=== PATIENT | female | born 1955 | race Caucasian/White ===

== ENCOUNTER 2016-11-13 16:50 | Emergency (ER) | payer OTHER ==
[2016-11-13] MEDS ORDERED: ACETAMINOPHEN 325 MG TAB PO ONE (17:12)
[2016-11-13 17:17] LABS: COLOR YELLOW; LEUKOCYTE ESTERASE,URINE 1+ (NEGATIVE); NITRITE,URINE NEGATIVE (NEGATIVE); PH,URINE 6.5 (5.0-7.5)
[2016-11-13 17:33] LABS: BACTERIA 2+ /hpf (NONE SEEN); MUCUS 2+ /lpf (NONE-1+)
[2016-11-13] MEDS ORDERED: NS 1,000 ML IV ONE ×2 (17:55→19:35)
[2016-11-13] MEDS ORDERED: ONDANSETRON 4 MG/2 ML VIAL IVP ONE (19:05)
[2016-11-13 19:10] LABS: % IMMATURE GRANULYOCYTES 0.3 % (0.0-1.1); ABSOLUTE IMMATURE GRANULOCYTES 0.04 10^3/uL (0.00-0.10); ADD DIFF? NO; ADD MORPH? NO; ADD SCAN? NO; ATYPICAL LYMPHOCYTE FLAG 0 (0-99); FRAGMENT RBC FLAG 0 (0-99); HEMATOCRIT 38.6 % (38.0-47.0); LEFT SHIFT FLG 0 (0-99); LIPEMIA HEMOLYSIS FLAG 80 (0-99); MEAN CELL HEMOGLOBIN 29.1 pg (27.9-34.1); MEAN CELL HEMOGLOBIN CONCENTR. 33.7 g/dL (32.4-36.7); MEAN CELL VOLUME 86.4 fL (81.5-99.8); MEAN PLATELET VOLUME 10.3 fL (8.7-11.7); PLATELET CLUMPS FLAG 0 (0-99); PLATELET COUNT 283 10^3/uL (150-400); RED BLOOD CELL COUNT 4.47 10^6/uL (4.18-5.33); RED CELL DISTRIBUTION WIDTH 13.7 % (11.5-15.2)
[2016-11-13 19:28] LABS: ANION GAP 17 mEq/L (8-16); CALCIUM 9.2 mg/dL (8.5-10.4); CARBON DIOXIDE 21 mEq/l (22-31); CHLORIDE 100 mEq/L (97-110); CREATININE 0.6 mg/dL (0.6-1.0); GLOMERULAR FILTRATION RATE > 60; GLUCOSE 101 mg/dL (70-100); POTASSIUM 3.8 mEq/L (3.5-5.2); SODIUM 138 mEq/L (134-144)
[2016-11-13] MEDS ORDERED: IPRATROPIUM/ALBUTEROL 3 ML DEYVIAL IH ONE (19:34)
[2016-11-13] MEDS ORDERED: KETOROLAC 30 MG/1 ML SDV IVP ONE (19:35)
[2016-11-13] MEDS ORDERED: ALBUTEROL INH PREPACK MDI TAKEHOME ONE (20:07)
[2016-11-13] MEDS ORDERED: HYDROCOD/APAP 5/325 PREPACK#6 BTL TAKEHOME ONE (20:09)
--- NOTE | 2016-11-13 20:33 | UCPHY ---
H & P Patient Type: New Chief Complaint Nursing Narrative: pain in left side, worse with motion, coughing and deep breaths since yesterday, Denies n.v, normal BM Time Seen by Provider: 11/13/16 17:20 HPI/ROS: This patient complains of left-sided flank pain for the past 24 hours. She describes this as sharp worse with movement worse with deep breaths. Peak intensity 9/10 at baseline despite 4/10. She has associated nasal congestion occasional dry cough over the past 2 weeks prior to this. She also reports mild dyspnea. She has noticed any other associated symptoms. She reports associated low-grade fevers. ROS: No high fevers or chills. She does report mild fatigue. No other constitutional symptoms. HEENT: No complaints other than the nasal congestion. Pulmonary: No respiratory distress. No hemoptysis. No sputum production. Cardiovascular: No lightheadedness. No leg swelling or calf pain. GI: No abdominal pain. No nausea vomiting or diarrhea. 10 point ROS is otherwise negative. Source: Patient Exam Limitations: No limitations - Medical/Surgical History PMH: Nexium for GERD otherwise healthy Hx Asthma: No Hx Chronic Respiratory Disease: No Hx Diabetes: No Hx Cardiac Disease: No Hx Renal Disease: No Hx Cirrhosis: No Hx Alcoholism: No Hx HIV/AIDS: No Hx Splenectomy or Spleen Trauma: No Other PMH: barrets esophagus, GERD, appendectomy, eyelid surgery from graves disease - Family History Significant Family History: No pertinent family hx - Social History Smoking Status: Never smoked Alcohol Use: Occasionally Drug Use: None - Physical Exam Exam: Vital signs notable for mild tachycardia to 110 mild hypoxia at 94% room air. Other vitals normal General Appearance: Alert, no distress. Eyes: Pupils equal and round no pallor or injection. ENT, Mouth: Mucous membranes moist. Respiratory: Mild diminished breath sounds left base and she splinting due to pleuritic pain. I appreciate no rales. No significant wheeze. No rhonchi. Cardiovascular: Mild tachycardia. No murmur gallop rub. She has no leg swelling or calf tenderness. Back: Positive left-sided CVA tenderness Gastrointestinal: Abdomen is soft and nontender, no masses, bowel sounds normal. Neurological: Alert with no focal deficits. Skin: Warm and dry, no rashes. Musculoskeletal: Neck is supple nontender. Extremities are symmetrical, full range of motion. Psychiatric: Mood and affect are normal DIFFERENTIAL DIAGNOSIS: After history and physical exam differential diagnosis was considered for pyelonephritis, PE, pneumonia, bronchitis Constitutional: Initial Vital Signs Temperature (C) 37.4 C 11/13/16 16:59 Heart Rate 110 H 11/13/16 16:59 Respiratory Rate 16 11/13/16 16:59 Blood Pressure 144/76 H 11/13/16 16:59 O2 Sat (%) 94 11/13/16 16:59 O2 Delivery Mode Room Air Allergies/Adverse Reactions: No Known Allergies Allergy (Unverified 11/13/16 16:58) Home Medications: Medication Instructions Recorded Esomeprazole Magnesium [Nexium] 11/13/16 Hydrocodone/APAP 5/325 [[place] 1 - 2 tab PO Q4PRN PRN #10 tab 11/13/16 5/325 (*)] levOFLOXACIN [levAQUIN (*)] 750 mg PO DAILY #5 tab 11/13/16 Medical Decision Making ED Course/Re-evaluation: IV is established. Patient is treated with a 2 L normal saline bolus with resolution of tachycardia. IV morphine and Toradol with relief of flank pain. Ceftriaxone IV for pyelonephritis DuoNeb for bronchitis with increased aeration and subjective improvement. Discussion: Patient initially had presentation consistent with SIRS with infectious source of pyelonephritis-fine for mild sepsis without septic shock. She responded well to treatment. Admission is offered but she feels markedly improved in her tachycardia has resolved. She wishes to go home and I think this is reasonable given her clinical improvement lack of evidence of toxicity. - Data Points Laboratory Results: Laboratory Results 11/13/16 18:45 11/13/16 18:45 11/13/16 11/13/16 11/13/16 19:40 19:00 18:45 WBC RBC Hgb Hct MCV MCH MCHC RDW Plt Count MPV Neut % (Auto) Lymph % (Auto) [place] % (Auto) Eos % (Auto) Baso % (Auto) Nucleat RBC Rel Count Absolute Neuts (auto) Absolute Lymphs (auto) Absolute Monos (auto) Absolute Eos (auto) Absolute Basos (auto) Absolute Nucleated RBC Immature Gran % Immature Gran # D-Dimer 0.39 ug/mLFEU ug/mLFEU (0.00-0.50) VBG Lactic Acid 0.9 mmol/L mmol/L (0.7-2.1) Sodium Potassium Chloride Carbon Dioxide Anion Gap BUN Creatinine Estimated GFR Glucose Calcium Urine Color Urine Appearance Urine pH Ur Specific [place] Urine Protein Urine Ketones Urine Blood Urine Nitrate Urine Bilirubin Urine Urobilinogen Ur Leukocyte Esterase Urine RBC Urine WBC Ur Epithelial Cells Urine Bacteria Urine Mucus Ur Culture Indicated? Urine Glucose Influenza Typ A,B (DFA) NEGATIVE FOR FLU (NEGATIVE) 11/13/16 11/13/16 11/13/16 18:45 18:45 17:10 WBC 13.26 10^3/uL H 10^3/uL (3.80-9.50) RBC 4.47 10^6/uL 10^6/uL (4.18-5.33) Hgb 13.0 g/dL g/dL (12.6-16.3) Hct 38.6 % % (38.0-47.0) MCV 86.4 fL fL (81.5-99.8) MCH 29.1 pg pg (27.9-34.1) MCHC 33.7 g/dL g/dL (32.4-36.7) RDW 13.7 % % (11.5-15.2) Plt Count 283 10^3/uL 10^3/uL (150-400) MPV 10.3 fL fL (8.7-11.7) Neut % (Auto) 63.4 % % (39.3-74.2) Lymph % (Auto) 26.9 % % (15.0-45.0) Kern % (Auto) 8.6 % % (4.5-13.0) Eos % (Auto) 0.4 % L % (0.6-7.6) Baso % (Auto) 0.4 % % (0.3-1.7) Nucleat RBC Rel Count 0.0 % % (0.0-0.2) Absolute Neuts (auto) 8.41 10^3/uL H 10^3/uL (1.70-6.50) Absolute Lymphs (auto) 3.57 10^3/uL H 10^3/uL (1.00-3.00) Absolute Monos (auto) 1.14 10^3/uL H 10^3/uL (0.30-0.80) Absolute Eos (auto) 0.05 10^3/uL 10^3/uL (0.03-0.40) Absolute Basos (auto) 0.05 10^3/uL 10^3/uL (0.02-0.10) Absolute Nucleated RBC 0.00 10^3/uL 10^3/uL (0-0.01) Immature Gran % 0.3 % % (0.0-1.1) Immature Gran # 0.04 10^3/uL 10^3/uL (0.00-0.10) D-Dimer VBG Lactic Acid Sodium 138 mEq/L mEq/L (134-144) Potassium 3.8 mEq/L mEq/L (3.5-5.2) Chloride 100 mEq/L mEq/L (97-110) Carbon Dioxide 21 mEq/l L mEq/l (22-31) Anion Gap 17 mEq/L H mEq/L (8-16) BUN 10 mg/dL mg/dL (7-23) Creatinine 0.6 mg/dL mg/dL (0.6-1.0) Estimated GFR > 60 Glucose 101 mg/dL H mg/dL (70-100) Calcium 9.2 mg/dL mg/dL (8.5-10.4) Urine Color YELLOW Urine Appearance HAZY Urine pH 6.5 (5.0-7.5) Ur Specific [place] 1.015 (1.002-1.030) Urine Protein TRACE H (NEGATIVE) Urine Ketones 1+ H (NEGATIVE) Urine Blood 2+ H (NEGATIVE) Urine Nitrate NEGATIVE (NEGATIVE) Urine Bilirubin NEGATIVE (NEGATIVE) Urine Urobilinogen 0.2 EU EU (0.2-1.0) Ur Leukocyte Esterase 1+ H (NEGATIVE) Urine RBC 1-3 /hpf /hpf (0-3) Urine WBC 10-15 /hpf H /hpf (0-3) Ur Epithelial Cells 2+ /lpf H /lpf (NONE-1+) Urine Bacteria 2+ /hpf H /hpf (NONE SEEN) Urine Mucus 2+ /lpf H /lpf (NONE-1+) Ur Culture Indicated? INDICATED H (NI) Urine Glucose NEGATIVE (NEGATIVE) Influenza Typ A,B (DFA) Medications Given: Discontinued Medications Acetaminophen (Tylenol) 650 mg PO EDNOW ONE Stop: 11/13/16 17:13 Last Admin: 11/13/16 17:28 Dose: 650 mg Ceftriaxone Sodium 1 gm/ (Sodium Chloride) 100 mls @ 200 mls/hr IV EDNOW ONE PRN Reason: Protocol Stop: 11/13/16 18:24 Last Admin: 11/13/16 19:40 Dose: 100 mls Sodium Chloride (Ns) 1,000 mls @ 0 mls/hr IV ONCE ONE PRN Reason: Wide Open Stop: 11/13/16 17:56 Last Admin: 11/13/16 19:30 Dose: 1,000 mls Morphine Sulfate (Morphine) 4 mg IVP EDNOW ONE Stop: 11/13/16 19:05 Last Admin: 11/13/16 19:35 Dose: 4 mg Ondansetron HCl (Zofran) 4 mg IVP EDNOW ONE Stop: 11/13/16 19:06 Last Admin: 11/13/16 19:32 Dose: 4 mg Departure - Departure Disposition: Home, Routine, Self-Care Clinical Impression: Pyelonephritis, Bronchitis, Dehydration Condition: Good Instructions: Acute Bronchitis (ED), Kidney Infection (ED) Additional Instructions: Diagnoses: 1. Pyelonephritis 2. Bronchitis Tonight your receive ceftriaxone antibiotic IV Plan: Drink plenty fluids Levaquin antibiotic-start tomorrow Ibuprofen and Vicodin as needed for pain control. No driving, alcohol or come Vicodin. His pain improved switch to Tylenol. Follow-up this week with her primary care physician for recheck. Go to the emergency department for any significant worsening despite the treatment plan Referrals: NONE *PRIMARY CARE P,. [Primary Care Provider] - As per Instructions Prescriptions: Hydrocodone/APAP 5/325 [[place] 5/325 (*)] 1 - 2 tab PO Q4PRN PRN #10 tab PRN Reason: Pain levOFLOXACIN [levAQUIN (*)] 750 mg PO DAILY #5 tab - PQRS PQRS Measurement: NA
[2016-11-13] MEDS ORDERED: ONDANSETRON 4MG PREPACK#2 BTL TAKEHOME ONE (21:21)
[2016-11-13 23:54] VITALS: BP 95/57; PULSE 94; RESP 18; TEMP 97.5; O2SAT 95
== END 2016-11-13 21:20 | disposition home or self-care (01) ==
LOC: CED 16:50
DX: N10 Acute pyelonephritis (principal); J40 Bronchitis, not specified as acute or chronic; E86.0 Dehydration; K21.9 Gastro-esophageal reflux disease without esophagitis
CPT/HCPCS: 71020-PO; 80048-PO; 81003-PO; 81015-PO; 83605-PO; 85025-PO; 85378-PO; 87400-PO; 96361-PO; 96365-PO; 96375-PO; 99205-PO; G0463-PO; J0696; J1885; J2405

== ENCOUNTER → 2018-05-25 | Outpatient (CLI) | payer OTHER | LOC: CIMAGING 09:03 | PROVIDERS: ATTEND Internal Medicine Gastroenterology | DX: K80.20 Calculus of gallbladder without cholecystitis without obstruction (principal) | CPT/HCPCS: 76705-PO ==

== ENCOUNTER → 2018-06-18 | Outpatient (CLI) | payer OTHER | LOC: FIMAGING 08:39 | PROVIDERS: ATTEND Surgery | DX: K44.9 Diaphragmatic hernia without obstruction or gangrene (principal); K21.9 Gastro-esophageal reflux disease without esophagitis ==

== ENCOUNTER 2018-08-13 08:14 | Observation (INO) | payer OTHER ==
--- NOTE | 2018-08-09 08:59 | GHP ---
DATE OF ADMISSION: 08/13/2018 DATE OF SURGERY: 08/13/2018 CHIEF COMPLAINT: Nuñez esophagus, hiatal hernia. HISTORY OF PRESENT ILLNESS: A 63-year-old woman who first presented with concern for cholelithiasis. On interview, she does not have postprandial pain. She had discomfort when leaning over to tie her shoes. She does have a history of Nuñez esophagus. An upper GI was performed which showed a mode rate-sized central sliding hiatal hernia with multiple episodes of gastroesophageal reflux. She cont inues to have reflux despite being on 40 mg of Nexium. She also recently started taking an H2 blocke r. She reports that she can only eat very small meals before she gets discomfort in her epigastrium and chest. PAST MEDICAL HISTORY: Asthma, Nuñez esophagus, GERD, Graves disease, hiatal hernia, hyperthyroidis m, post-polio syndrome. PAST SURGICAL HISTORY: Appendectomy, eyelid surgery, bilateral foot surgery. ALLERGIES: No known drug allergies. FAMILY HISTORY: Significant for type 2 diabetes, heart disease, and colon cancer. SOCIAL HISTORY: She has 1 child. She reports occasional alcohol use. Denies tobacco or recreationa l drug use. She is a former smoker. REVIEW OF SYSTEMS: A 10-point review of systems negative aside from the HPI. PHYSICAL EXAMINATION: GENERAL: A pleasant, well-developed, well-nourished woman in no acute distres s. HEENT: Normocephalic, atraumatic. No hearing deficits. Pupils equal and round. No scleral ict erus. Mucous membranes moist. NECK: Trachea midline. RESPIRATORY: Clear to auscultation bilatera lly. No increased work of breathing. CARDIOVASCULAR: No peripheral edema. Regular rate and rhythm . ABDOMEN: Soft, nondistended, nontender. Bowel sounds present. SKIN: Warm and dry. PSYCH: Moo d and affect normal. NEURO: Grossly intact. IMPRESSION AND PLAN: A 63-year-old woman with a hiatal hernia and Nuñez esophagus. She will go to the operating room for a robotic hiatal hernia repair and Chen fundoplication. Risks discussed in cluding heart attack, stroke, blood clots, or . We discussed risk of infection, bleeding, and d amage to surrounding structures such as the spleen, esophagus, stomach, small intestine and colon. S he understands that she will send the night in the hospital and will be discharged on a clear liquid diet. She understands the risks and would like to proceed. Her case was discussed with her gastroen terologist, Dr. Feliciano. The patient was additionally seen by Dr. Mary Koch, who agrees with the [facility] impression and plan. /[id number]/MODL
--- NOTE | 2018-08-13 08:44 | POSTANESTH ---
Post Anesthetic Evaluation Cardiovascular Status: Normal, Stable Respiratory Status: Normal, Stable Level of Consciousness/Mental Status: Moderately Sleepy Pain Control: Adequate, Prn Tx Ordered Nausea/Vomiting Control: Adequate, Prn Tx Ordered Complications Possibly Related to Anesthesia: None Noted
--- NOTE | 2018-08-13 08:46 | PDANEPAE ---
ANE History of Present Illness 63 yo female with Nuñez's esophagus and hiatal hernia for Chen. ANE Past Medical History - Cardiovascular History Hx Hypertension: No Hx Arrhythmias: No Hx Chest Pain: No Hx Coronary Artery / Peripheral Vascular Disease: No Hx CHF / Valvular Disease: No Hx Palpitations: No - Pulmonary History Hx COPD: No Hx Asthma/Reactive Airway Disease: Yes Hx Recent Upper Respiratory Infection: No Hx Oxygen in Use at Home: No Hx Sleep Apnea: No Sleep Apnea Screening Result - Last Documented: Negative Pulmonary History Comment: hx of acute bronchitis. asthma with exposure to cats - Neurologic History Hx Cerebrovascular Accident: No Hx Seizures: No Hx Dementia: No Neurologic History Comment: post polio syndrome- right foot and calf have very little motor movement - Endocrine History Hx Diabetes: No Hypothyroid: No Obesity: mild Endocrine History Comment: hx of Graves disease- euthyroid currently - Renal History Hx Renal Disorders: Yes Renal History Comment: hx of pyelonephritis - Liver History Hx Hepatic Disorders: No - Neurological & Psychiatric Hx Hx Neurological and Psychiatric Disorders: No - Cancer History Hx Cancer: No - Congenital Disorder History Hx Congenital Disorders: No - GI History GERD: severe Hx Gastrointestinal Disorders: Yes Gastrointestinal History Comment: hiatal hernia. reflux - poorly controlled despite multi meds - Other Health History Other Health History: wears glasses - Chronic Pain History Chronic Pain: No - Surgical History Prior Surgeries: right shoulder surgery 01/2017 x2. left foot surgery- bone shaved. right foot surgery as child. exploratory surgery with appy at 19 yo ANE Review of Systems Review of Systems: - Exercise capacity METS (RN): 4 METS - Systems Constitutional: Reports: no symptoms Cardiac: Reports: no symptoms Respiratory: Reports: no symptoms Gastrointestinal: Reports: abdominal pain ANE Patient History - Allergies Allergies/Adverse Reactions: diphenhydramine [From Benadryl] Allergy (Verified 08/10/18 10:46) no benadryl for nausea- "I can't wake up" - Home Medications Home Medications: Esomeprazole Magnesium [Nexium] 40 mg PO DAILY 11/13/16 [Last Taken 08/13/18] Multivitamins [Multivitamin (*)] 1 each PO DAILY 08/04/18 [Last Taken 08/03/18] Ranitidine HCl [Zantac 75] 75 mg PO HS 08/04/18 [Last Taken 08/12/18] - NPO status NPO Since - Liquids (Date): 08/13/18 NPO Since - Liquids (Time): 06:45 (water, black coffee) NPO Since - Solids (Date): 08/12/18 - Anes Hx Anes Hx: post operative nausea and vomiting - Smoking Hx Smoking Status: Former smoker Marijuana use: No - Alcohol Use Alcohol Use: Rarely - Family Anes Hx Family Anes Hx: neg - N/A Family Hx Anesthesia Complications: none ANE Labs/Vital Signs - Vital Signs Vital Signs: reviewed preoperatively; see RN documention for details Height: 152.4 cm Weight: 74.389 kg ANE Physical Exam - Airway Neck exam: FROM Mallampati Score: Class 2 Mouth exam: normal dental/mouth exam - Pulmonary Pulmonary: clear to auscultation - Cardiovascular Cardiovascular: regular rate and rhythym - ASA Status ASA Status: II ANE Anesthesia Plan Anesthesia Plan: general endotracheal anesthesia
[2018-08-13] MEDS ORDERED: ceFAZolin 2 GM/DEXTROSE 100 ML IV ONE (08:49)
[2018-08-13] MEDS ORDERED: LIDOCAINE 1% 2 ML INJ ID PRN (08:50)
[2018-08-13] MEDS ORDERED: LR 1,000 ML IV ONE (08:50)
[2018-08-13] MEDS ORDERED: SCOPOLAMINE HYDROBROMIDE 1 MG/3 DAYS PATCH TD SCH ×2 (09:00)
--- NOTE | 2018-08-13 09:26 | PDHPUP ---
History & Physical Update H&P update statement: This history and physical update is based on an assessment of the patient which was completed after admission or registration (within 24 hours), but prior to the surgery/procedure. H&P update: H&P reviewed & patient examined, no change in patient's condition since H&P completed
[2018-08-13] MEDS ORDERED: MIDAZOLAM 2 MG/2 ML VIAL IVP ONE (09:41)
[2018-08-13] MEDS ORDERED: LIDOCAINE 2% 2 ML INJ ONE (09:53)
[2018-08-13] MEDS ORDERED: fentaNYL 100 MCG/2 ML INJ ONE ×3 (09:53→13:21)
[2018-08-13] MEDS ORDERED: ROCURONIUM 100 MG/10 ML VIAL ONE (09:53)
[2018-08-13] MEDS ORDERED: DEXAMETHASONE 4 MG/ML VIAL ONE (09:53)
[2018-08-13] MEDS ORDERED: PROPOFOL/EMULSION 500 MG/50 ML BOTTLE IV ONE ×3 (09:54→12:04)
[2018-08-13] MEDS ORDERED: BUPIVACAINE 0.5% 30 ML SDV ONE (10:02)
[2018-08-13] MEDS ORDERED: ONDANSETRON 4 MG/2 ML VIAL ONE (12:18)
[2018-08-13] MEDS ORDERED: KETOROLAC 30 MG/1 ML SDV ONE (12:28)
[2018-08-13] MEDS ORDERED: SUGAMMADEX SODIUM 200 MG/2 ML VIAL IVP ONE (12:30)
--- NOTE | 2018-08-13 12:30 | POSTOPPROG ---
Post Op Note Date of Operation: 08/13/18 Surgeon: Mary Koch Deckhand [employer]rimp Boat: haim Anesthesiologist: erica Anesthesia: GET(General Endotracheal) Pre-op Diagnosis: barrets esophagus, hiatal hernia Post-op Diagnosis: same Indication: 63 yo with hiatal hernia and barretts esophagus Procedure: davinci hiatal hernia with leslie Findings: hernia sac Inf/Abcess present in the surg proc area at time of surgery?: No
[2018-08-13] MEDS ORDERED: ACETAMINOPHEN 325 MG TAB PO PRN (12:31)
[2018-08-13] MEDS ORDERED: PROMETHAZINE HCL 25 MG/ML INJ IVP PRN (12:31)
[2018-08-13] MEDS ORDERED: ONDANSETRON 4 MG/2 ML VIAL IVP PRN (12:31)
[2018-08-13] MEDS ORDERED: ALBUTEROL 3 ML DEYVIAL IH PRN (12:32)
[2018-08-13] MEDS ORDERED: oxyCODONE IR 5 MG TAB PO PRN (12:32)
[2018-08-13] MEDS ORDERED: METOCLOPRAMIDE 10 MG/2 ML VIAL IVP PRN (12:32)
[2018-08-13] MEDS ORDERED: LR 500 ML IV PRN (12:32)
[2018-08-13] MEDS ORDERED: NALOXONE HCL 0.4 MG/ML INJ IVP PRN (12:32)
[2018-08-13] MEDS ORDERED: traMADol 50 MG TAB PO PRN (12:32)
[2018-08-13] MEDS ORDERED: ACETAMINOPHEN 500 MG TAB PO PRN (12:32)
--- NOTE | 2018-08-13 12:37 | SOAPPROG ---
ESTEFANY Progress Note Assessment/Plan: Assessment: s/p leslie with hiatal hernia repair Plan: 08/13/18 12:35 Objective: Vital Signs Temp Pulse Resp BP Pulse Ox 36.8 C 85 16 135/94 H 96 08/13/18 08:53 08/13/18 08:53 08/13/18 08:53 08/13/18 08:53 08/13/18 08:53 ICD10 Worksheet Patient Problems: Problems Problem Status Onset Nuñez esophagus Acute GERD (gastroesophageal reflux disease) Acute Hiatal hernia Acute - ICD10 Problem Qualifiers (1) Nuñez esophagus (2) GERD (gastroesophageal reflux disease) (3) Hiatal hernia
[2018-08-13] MEDS: fentaNYL 100 MCG/2 ML INJ IVP PRN ×2 (13:22→13:31)
[2018-08-13] MEDS: PANTOPRAZOLE SODIUM 40 MG VIAL IVP SCH ×2 (14:20→17:51)
[2018-08-13] MEDS: oxyCODONE IR 5 MG TAB PO PRN (20:06)
[2018-08-14] MEDS: PANTOPRAZOLE SODIUM 40 MG VIAL IVP SCH ×4 (01:31→17:49)
[2018-08-14] MEDS: oxyCODONE IR 5 MG TAB PO PRN ×4 (07:19→23:08)
[2018-08-14] MEDS: ONDANSETRON DISINTEGRATING 4 MG TAB PO PRN ×4 (07:20→23:08)
--- NOTE | 2018-08-14 11:07 | SOAPPROG ---
SOAP Progress Note Assessment/Plan: Assessment: STATUS POST JEFERSON FUNDOPLICATION/ DOING REASONABLY WELL/MINIMAL PAIN/ TOLERATING CLEAR LIQUIDS/PREFERS TO GO HOME TODAY CHEST CLEAR/ABDOMEN SOFT WITH WELL-HEALING TROCAR SITES/COR REGULAR RHYTHM/ HEENT NONICTERIC Plan: HOME TODAY/INSTRUCTIONS GIVEN/FOLLOW-UP DR. HONEYCUTT IN 1 WEEK PRESCRIPTION FOR OXY IR AND ZOFRAN 08/14/18 11:06 Objective: Vital Signs Temp Pulse Resp BP Pulse Ox 36.6 C 83 14 98/62 L 92 08/14/18 07:38 08/14/18 07:38 08/14/18 07:38 08/14/18 07:38 08/14/18 07:38 08/13/18 08/14/18 08/15/18 05:59 05:59 05:59 Intake Total 1300 Output Total 525 Balance 775 ICD10 Worksheet Patient Problems: Problems Problem Status Onset Nuñez esophagus Acute GERD (gastroesophageal reflux disease) Acute Hiatal hernia Acute
[2018-08-15] MEDS: PANTOPRAZOLE SODIUM 40 MG VIAL IVP SCH ×3 (00:04→12:45)
[2018-08-15] MEDS: oxyCODONE IR 5 MG TAB PO PRN ×3 (06:03→17:45)
[2018-08-15] MEDS: ONDANSETRON DISINTEGRATING 4 MG TAB PO PRN ×3 (06:03→17:45)
--- NOTE | 2018-08-15 11:20 | SOAPPROG ---
SOAP Progress Note Assessment/Plan: Assessment: STATUS POST JEFERSON FUNDOPLICATION/ DOING REASONABLY WELL/MINIMAL PAIN/ TOLERATING CLEAR LIQUIDS/PREFERS TO GO HOME TODAY CHEST CLEAR/ABDOMEN SOFT WITH WELL-HEALING TROCAR SITES/COR REGULAR RHYTHM/ HEENT NONICTERIC Plan: HOME TODAY/INSTRUCTIONS GIVEN/FOLLOW-UP DR. HONEYCUTT IN 1 WEEK PRESCRIPTION FOR OXY IR AND ZOFRAN 08/14/18 11:06 08/15/18 11:19 DOING WELL/AFEBRILE/WOUND OKAY/WANTS TO GO HOME O2 SAT 89-90 ON ROOM AIR HOME TODAY WITHOUT OXYGEN/FOLLOW-UP WITH DR. HONEYCUTT NEXT WEEK Objective: Vital Signs Temp Pulse Resp BP Pulse Ox 36.8 C 88 20 94/64 L 85 L 08/15/18 07:55 08/15/18 10:53 08/15/18 10:53 08/15/18 07:55 08/15/18 10:53 08/14/18 08/15/18 08/16/18 05:59 05:59 05:59 Intake Total 1300 400 Output Total 525 Balance 775 400 ICD10 Worksheet Patient Problems: Problems Problem Status Onset Nuñez esophagus Acute GERD (gastroesophageal reflux disease) Acute Hiatal hernia Acute
--- NOTE | 2018-08-15 14:39 | ASMTCMCOM ---
CM Note CM Note Notes: Patient is 63 year old female, status post Chen fundoplication with a history of Nuñez esophagus, GERD, and hiatal hernia. Patient received D/C orders though RN shared the patient O2 to be monitored to confirm discharge. CM met with patient, she will likely discharge home independently, would like to go home today. Patient to follow up as recommended. CM to follow. D/C Plan: Independent. Date Signed: 08/15/2018 02:38 PM Electronically Signed By:Anisa Jin
--- NOTE | 2018-08-15 15:10 | SOAPPROG ---
SOAP Progress Note Assessment/Plan: Assessment: STATUS POST JEFERSON FUNDOPLICATION/ DOING REASONABLY WELL/MINIMAL PAIN/ TOLERATING CLEAR LIQUIDS/PREFERS TO GO HOME TODAY CHEST CLEAR/ABDOMEN SOFT WITH WELL-HEALING TROCAR SITES/COR REGULAR RHYTHM/ HEENT NONICTERIC Plan: HOME TODAY/INSTRUCTIONS GIVEN/FOLLOW-UP DR. HONEYCUTT IN 1 WEEK PRESCRIPTION FOR OXY IR AND ZOFRAN 08/14/18 11:06 08/15/18 11:19 DOING WELL/AFEBRILE/WOUND OKAY/WANTS TO GO HOME O2 SAT 89-90 ON ROOM AIR HOME TODAY WITHOUT OXYGEN/FOLLOW-UP WITH DR. HONEYCUTT NEXT WEEK 08/15/18 15:09 O2 SAT IS DROPPED DOWN INTO THE MID 80S AND LOW 80S/SHE WILL NEED HOME OXYGEN THERAPY Objective: Vital Signs Temp Pulse Resp BP Pulse Ox 36.8 C 95 16 104/67 88 L 08/15/18 12:00 08/15/18 12:00 08/15/18 12:00 08/15/18 12:00 08/15/18 12:00 08/14/18 08/15/18 08/16/18 05:59 05:59 05:59 Intake Total 1300 400 Output Total 525 Balance 775 400 ICD10 Worksheet Patient Problems: Problems Problem Status Onset Nuñez esophagus Acute GERD (gastroesophageal reflux disease) Acute Hiatal hernia Acute
[2018-08-15 15:38] VITALS: BP 106/55
--- NOTE | 2018-08-15 16:05 | PDIAF ---
- Diagnosis Code Status: Full Code - Medication Management Discharge Medications: electronically signed and located in the Home Medication List. - Orders Oxygen: homeo2 Diet Recommendation: no restrictions on diet Diet Texture: Dysphagia 1 - Pureed Additional Instructions: Resume home medications. I will discuss with GI when to start weaning off Start diet with items that slide. Advance diet as tolerated May shower No heavy lifting, pushing or pulling more than 15 lbs for 2 weeks - Follow Up Care Current Providers and Referrals: Mary Koch MD [Medical Doctor] - follow up in 2 weeks Pooja Bunn NP [Primary Care Provider] -
--- NOTE | 2018-08-15 16:10 | PDHOMEO2F ---
Home Oxygen Face to Face Home Orders: I certify that a physician or a nurse practitioner or physician's graduate assistant has had a [id number] encounter with this patient on the date of this order due to the diagnosis listed, which relates to the primary reason the patient requires home oxygen. Alternative treatments have been tried, or considered, and deemed ineffective. It is anticipated that supplemental oxygen will result in improvement with treatment. Home oxygen qualifying diagnosis: hypoxic SpO2 on room air (%): 85 Frequency of home oxygen needed: continuous Home oxygen liters per minute: 1-2 Home oxygen delivery device: nasal cannula Concentrator: Yes E-tanks for mobility and back up: Yes If ordering portable O2, is the patient mobile in the home?: Yes I certify that, based on these findings, the home oxygen is medically necessary for this patient for the following length of time. Length of time home oxygen needed: 1 month
--- NOTE | 2018-08-18 07:55 | GOP ---
DATE OF OPERATION: 08/13/2018 SURGEON: Mary Koch MD [facility] COORDINATOR: JUAN Guajardo ANESTHESIA: General. 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 POSTOPERATIVE DIAGNOSIS: Nuñez esophagus and hiatal hernia. PROCEDURE PERFORMED: Da Pamrjit hiatal hernia repair with Chen fundoplication. FINDINGS: Hernia sac. ESTIMATED BLOOD LOSS: Minimal. INDICATIONS: The patient is a 63-year-old with Nuñez esophagus, hiatal hernia , and difficulty after eating. She also has known cholelithiasis. We elected to perform hiatal hernia repair with Chen fundoplication as I believe this is where her symptoms were arising. DESCRIPTION OF PROCEDURE: The patient was brought into the operating room, placed supine on the table, and general anesthesia was administered. Her abdomen was prepped and draped in the usual sterile fashion. I made an incision above her umbilicus, I elevated it, and I inserted the Veress needle. It passed the hanging drop test. Her abdomen insufflated easily to a pressure of 15 mmHg. I then placed an 8 mm trocar, which had to be hubbed at this site. There were no injuries from Veress needle placement. Under direct vision, I placed an 8 mm trocar in the left upper quadrant and right upper quadrant in the midclavicular line. I placed an 8 mm trocar in the right lateral abdomen and an historian research assistant 5 mm trocar on the left lateral abdomen. The robot was brought in. She was placed in the reverse Trendelenburg position, and the robot was docked. Instruments were passed under direct vision. I moved to the console. The liver retractor was placed to elevate the left lobe of the liver and expose the hiatus. I was able to grasp the stomach and gently pull it toward the left lower quadrant. The gastrohepatic ligament was opened with the Harmonic beginning at the pars flaccida. The peritoneum was incised anteriorly over the hiatus to the left veto. The right veto was identified and cleared of investing tissue and a plane developed between the right veto and esophagus. The dissection was carried over the arch of the crura. The left veto was similarly dissected and the phrenoesophageal ligament divided. The vagus nerves were identified and protected. The esophagus was gently elevated and I could completely create a window underneath the esophagus. I then divided the short gastric vessels so that the fundus of the stomach was completely mobilized. Next, I elevated the esophagus and closed the hiatus with 4 interrupted sutures of 0 silk. At least 2 cm of intraabdominal esophagus was observed. The esophagus was resting in its normal position, and there was a small gap so that the esophagus was not constricted. Next, I passed my grasper behind the esophagus and was able to grasp the fundus and pull it over to the right side. It passed easily and proper orientation was ensured using the shoe shine maneuver. The wrap was approximated to itself without tension using 2-0 silk, creating a 360 floppy wrap around the distal esophagus. I did include a partial-thickness bite of the esophagus to anchor the wrap. Hemostasis was achieved. The liver retractor was removed under direct vision. The instruments were removed and the trocars removed. Skin closed with 4-0 Monocryl. Dermabond applied. She was awakened in the operating room, extubated , transferred to PACU in stable condition. /[id number]/MODL MTDD
== END 2018-08-15 18:25 | disposition home or self-care (01) ==
LOC: F3E 08:14
PROVIDERS: ADMIT Surgery; ATTEND Surgery
DX: K44.9 Diaphragmatic hernia without obstruction or gangrene (principal); K22.70 Barrett's esophagus without dysplasia; J45.909 Unspecified asthma, uncomplicated; E05.00 Thyrotoxicosis with diffuse goiter without thyrotoxic crisis or storm; G14 Postpolio syndrome
CPT/HCPCS: 43280; G0378; J0690; J1100; J1885; J2250; J2405; J2704; J3010

== ENCOUNTER → 2018-08-27 | Outpatient (CLI) | payer OTHER | LOC: CIMAGING 16:48 | PROVIDERS: ATTEND Nurse Practitioner | DX: J98.4 Other disorders of lung (principal); J98.11 Atelectasis | CPT/HCPCS: 71046-PO ==

== ENCOUNTER → 2018-12-17 | Outpatient (CLI) | payer OTHER | LOC: CIMAGING 16:15 | PROVIDERS: ATTEND Nurse Practitioner | DX: M25.551 Pain in right hip (principal) | CPT/HCPCS: 73502-PO ==